=== PATIENT | female | born 1965 | race Caucasian/White ===

== ENCOUNTER → 2017-04-30 | Outpatient (CLI) | payer OTHER ==
--- NOTE | 2017-04-30 14:44 | REPMRS ---
Patient History The patient states she has not had a clinical breast exam in over a year. Patient is postmenopausal and has history of other cancer at age 46. Family history of unknown cancer in father at age 78, unknown cancer in paternal grandfather at age 67, breast cancer in sister at age 44, breast cancer in mother at age 50, breast cancer in maternal cousin at age 35, and unknown cancer in 2 maternal uncles at age 50 or over. Took hormonal contraceptives for 2 months. Digital Mammo Screening Bilat: April 30, 2017 - Exam #: [id number] Bilateral CC and MLO view(s) were taken. Technologist: Skylar Domínguez, Technologist Prior study comparison: 2014, [facility] February 12, 2012, left breast digital mammo diagnostic unilateral performed at [facility]. January 31, 2012, bilateral bilat screen digital mammo, performed at [facility] ([facility]). FINDINGS: There are scattered fibroglandular densities. There has been no change in the appearance of the mammogram from the prior studies. There is a mild amount of residual fibroglandular tissue which is fairly symmetric. There is no interval development of dominant mass, architectural distortion, or clustered microcalcification suggestive of malignancy. ASSESSMENT: BI-RADS/ACR category 1 mammogram. Negative. Recommendation Routine screening mammogram in 1 year (for women over age 40). This mammogram was interpreted with the aid of an FDA-approved computer-aided dectection system. Electronically Signed By: Evangelist Castanon MD 04/30/17 [id number]
== END ==
LOC: M RAD 13:28
PROVIDERS: ATTEND Family Medicine
DX: Z12.31 Encounter for screening mammogram for malignant neoplasm of breast (principal); Z80.3 Family history of malignant neoplasm of breast; Z78.0 Asymptomatic menopausal state; Z92.0 Personal history of contraception

== ENCOUNTER → 2022-09-03 | Outpatient (CLI) | payer OTHER | LOC: M WHC 09:41 | DX: Z12.31 Encounter for screening mammogram for malignant neoplasm of breast (principal); Z80.3 Family history of malignant neoplasm of breast ==